=== PATIENT | male | born 1935 | race Caucasian/White ===

== ENCOUNTER 2016-04-01 15:02 | Outpatient (CLI) | payer MEDICARE, MEDICAID ==
--- NOTE | 2016-04-01 17:11 | CT ---
CT HEAD WITHOUT CONTRAST 04/01/16 Multiple axial tomograms are obtained through the head without IV enhancement. HISTORY: Subdural hematoma is given for reason for exam. Comparison is made to a CT dated 03/04/16. FINDINGS: Mild cortical volume loss is again noted. Ventricles remain normal size and position. Mild to modera te chronic ischemic white matter changes again noted. 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 There is no evidence of subdural hematoma. No other evidence of hemorrhage. No acute infarct or mass . IMPRESSION: There are chronic changes as described above. No acute abnormality identified. POS: [facility]
== END 2016-04-01 15:03 | disposition home or self-care (01) ==
LOC: MADCT 15:02
PROVIDERS: ATTEND Neurological Surgery
DX: I62.00 Nontraumatic subdural hemorrhage, unspecified (principal)
CPT/HCPCS: 70450

== ENCOUNTER 2018-01-17 16:03 | Outpatient (CLI) | payer MEDICARE, MEDICAID ==
[2018-01-17 16:24] LABS: Anion Gap 12 mmol/L (10-20); BUN (Urea Nitrogen) 27 mg/dL (8.4-25.7); Calc. Creatinine Clearance 0 mL/min (70-130); Calcium 9.4 mg/dL (7.8-10.44); Carbon Dioxide 31 mmol/L (23-31); Chloride 96 mmol/L (98-107); Estimated GFR-MDRD 57; Glucose 111 mg/dL (83-110); Potassium 4.7 mmol/L (3.5-5.1); Sodium 134 mmol/L (136-145)
== END 2018-01-17 16:04 | disposition home or self-care (01) ==
LOC: MADLAB 16:03
PROVIDERS: ATTEND Specialist
DX: Z51.81 Encounter for therapeutic drug level monitoring (principal); Z79.899 Other long term (current) drug therapy
CPT/HCPCS: 80048

== ENCOUNTER 2019-02-01 15:11 | Outpatient (CLI) | payer MEDICARE, MEDICAID ==
--- NOTE | 2019-02-01 17:33 | RAD ---
CERVICAL SPINE: Total of 6 views. Lateral views obtained with flexion and extension. INDICATION: Cervicalgia. FINDINGS: There are degenerative changes in the cervical spine. C7 and T1 not adequately evaluated on any of th e lateral views due to soft tissue attenuation. There is loss of disc space and degenerative hypertro phic changes. Slight anterolisthesis at C4-5 appears to exacerbate with flexion. IMPRESSION: Moderate degenerative changes of cervical spine. Slight anterolisthesis at C4-5. C7-T1 not adequately evaluated. POS: [facility]
== END 2019-02-01 15:12 | disposition home or self-care (01) ==
LOC: MADLAB 15:11
PROVIDERS: ATTEND Family Medicine
DX: M54.2 Cervicalgia (principal); E11.3493 Type 2 diabetes mellitus with severe nonproliferative diabetic retinopathy without macular edema, bilateral; M47.812 Spondylosis without myelopathy or radiculopathy, cervical region; M43.12 Spondylolisthesis, cervical region
CPT/HCPCS: 72052

== ENCOUNTER 2019-04-29 07:55 | Outpatient (CLI) | payer MEDICARE, MEDICAID ==
--- NOTE | 2019-04-29 11:10 | RAD ---
CHEST TWO VIEWS: HISTORY: Cough. COMPARISON: None. FINDINGS: Postop midline sternotomy and TAVR. Increased linear and interstitial markings bilaterally, nonspecif ic. No significant cardiomegaly. No confluent lobar pneumonia. IMPRESSION: 1. Increased markings bilaterally, nonspecific. 2. Postoperative transcatheter aortic valve replacement and postoperative midline sternotomy change. No prior radiographs. No confluent pneumonia. POS: [facility]
== END 2019-04-29 07:56 | disposition home or self-care (01) ==
LOC: MADRAD 07:55
PROVIDERS: ATTEND Family Medicine
DX: R05 Cough (principal); Z95.2 Presence of prosthetic heart valve; Z98.890 Other specified postprocedural states
CPT/HCPCS: 71046

== ENCOUNTER 2020-01-15 14:16 | Outpatient (CLI) | payer MEDICARE, OTHER ==
[2020-01-15 14:26] LABS: Hemoglobin 12.1 g/dL (14.0-18.0); Mean Corpuscular HGB CONC 31.9 g/dL (32.0-36.0); Mean Corpuscular Volume 93.9 fL (78.0-98.0); Mean Platelet Volume 6.8 fL (7.4-10.4); Platelet Count 138 thou/uL (130-400); RBC Distribution Width 13.5 % (11.5-14.5); Red Blood Cell (RBC) Count 4.04 mill/uL (4.70-6.10); White Blood Cell (WBC) Count 5.4 thou/uL (4.8-10.8)
[2020-01-15 14:30] LABS: Bilirubin Negative (Negative); Blood, Urine Negative (Negative); Clarity Clear (Clear); Glucose, Urine (Dipstick) 500 mg/dL (Negative); Ketone, Urine Negative (Negative); Leukocyte Negative (Negative); Nitrite Negative (Negative); Protein, Urine (Dipstick) Negative (Neg-Trace); Specific Gravity, Urine 1.015 (1.005-1.030)
[2020-01-15 14:31] LABS: Urine Culture Reflex No No
[2020-01-15 14:41] LABS: ALT (SGPT) 15 U/L (8-55); AST (SGOT) 20 U/L (5-34); Albumin 4.1 g/dL (3.4-4.8); Alkaline Phosphatase 76 U/L (40-110); Anion Gap 16 mmol/L (10-20); BUN (Urea Nitrogen) 29 mg/dL (8.4-25.7); Bilirubin, Total 0.7 mg/dL (0.2-1.2); Calc. Creatinine Clearance 0 mL/min (70-130); Carbon Dioxide 29 mmol/L (23-31); Chloride 95 mmol/L (98-107); Estimated GFR-MDRD 50; Globulin 2.9 g/dL (2.4-3.5); Glucose 162 mg/dL (83-110); Magnesium 1.9 mg/dL (1.6-2.6); Potassium 3.9 mmol/L (3.5-5.1); Sodium 136 mmol/L (136-145)
[2020-01-15 14:59] LABS: RBC/HPF 0-3 HPF (0-3); Squamous Epithelial 0-3 HPF (0-3); WBC/HPF 0-3 HPF (0-3)
[2020-01-15 15:00] LABS: Bacteria/HPF None Seen HPF (None Seen)
== END 2020-01-15 14:17 | disposition home or self-care (01) ==
LOC: MADLABBHPM 14:16
PROVIDERS: ATTEND Family Medicine
DX: N18.9 Chronic kidney disease, unspecified (principal); E83.42 Hypomagnesemia; R35.0 Frequency of micturition; D63.1 Anemia in chronic kidney disease
CPT/HCPCS: 80053; 81001; 83735; 85027

== ENCOUNTER 2021-10-09 10:45 | Inpatient (IN) | payer OTHER ==
[2021-10-09] MEDS ORDERED: Albuterol Sulfate 2.5 mg/3 ml Neb NEB PRN (14:38)
[2021-10-09] MEDS ORDERED: cefTRIAXone\\ROCEPHIN 2 GM VIAL IVPB SCH (14:45)
[2021-10-09] MEDS: metroNIDAZOLE 250 MG TAB PO SCH ×2 (15:53→21:49)
[2021-10-09] MEDS ORDERED: Sildenafil Citrate 20 MG TAB PO SCH (16:00)
[2021-10-09] MEDS ORDERED: IPRATROPIUM BROMIDE INH SCH (17:00)
[2021-10-09] MEDS: Acetaminophen 325 MG TAB PO SCH (18:27)
[2021-10-09] MEDS: cefTRIAXone\\ROCEPHIN 2 GM in Sodium Chloride 0.9% 100 ML IVPB SCH (21:45)
[2021-10-09] MEDS: Melatonin 3 MG TAB PO SCH (21:49)
[2021-10-09] MEDS: Atorvastatin Calcium 40 MG TAB PO SCH (21:49)
[2021-10-09] MEDS: Tamsulosin HCl 0.4 MG CAP PO SCH (21:49)
[2021-10-09] MEDS: Clotrimazole 1% Cream 15 GM TUBE TOP SCH (21:49)
[2021-10-09] MEDS: Sildenafil Citrate 20 MG TAB PO SCH (21:49)
[2021-10-09] MEDS: Apixaban 2.5 MG TAB PO SCH (21:50)
[2021-10-09] MEDS: Sotalol HCl 80 MG TAB PO SCH (21:50)
[2021-10-10] MEDS: Acetaminophen 325 MG TAB PO SCH ×3 (08:33→17:15)
[2021-10-10] MEDS: Sotalol HCl 80 MG TAB PO SCH ×2 (08:36→21:35)
[2021-10-10] MEDS: Clopidogrel Bisulfate 75 MG TAB PO SCH (08:36)
[2021-10-10] MEDS: Empagliflozin 10 MG TAB PO SCH (08:36)
[2021-10-10] MEDS: Sildenafil Citrate 20 MG TAB PO SCH ×4 (08:37→21:36)
[2021-10-10] MEDS: Cholecalciferol 1,000 UNITS (25 MCG) TAB PO SCH (08:37)
[2021-10-10] MEDS: Apixaban 2.5 MG TAB PO SCH ×2 (08:37→21:34)
[2021-10-10] MEDS: Saccharomyces boulardii 250 MG CAP PO SCH (08:37)
[2021-10-10] MEDS: Multivit, Therapeutic 1 TAB PO SCH (08:37)
[2021-10-10] MEDS: metroNIDAZOLE 250 MG TAB PO SCH ×4 (08:37→21:35)
[2021-10-10] MEDS: NPH, Human Insulin Isophane 300 UNIT/3 ML VIAL SC SCH (08:40)
[2021-10-10] MEDS: Clotrimazole 1% Cream 15 GM TUBE TOP SCH ×2 (08:40→21:38)
[2021-10-10] MEDS: Atorvastatin Calcium 40 MG TAB PO SCH (21:34)
[2021-10-10] MEDS: Melatonin 3 MG TAB PO SCH (21:34)
[2021-10-10] MEDS: Tamsulosin HCl 0.4 MG CAP PO SCH (21:35)
[2021-10-10] MEDS: cefTRIAXone\\ROCEPHIN 2 GM in Sodium Chloride 0.9% 100 ML IVPB SCH (21:37)
[2021-10-11] MEDS: Acetaminophen 325 MG TAB PO SCH ×3 (08:57→17:22)
[2021-10-11] MEDS: Multivit, Therapeutic 1 TAB PO SCH (08:58)
[2021-10-11] MEDS: Sotalol HCl 80 MG TAB PO SCH ×2 (08:58→21:30)
[2021-10-11] MEDS: Empagliflozin 10 MG TAB PO SCH (08:58)
[2021-10-11] MEDS: Clopidogrel Bisulfate 75 MG TAB PO SCH (08:58)
[2021-10-11] MEDS: Sildenafil Citrate 20 MG TAB PO SCH ×3 (08:59→21:33)
[2021-10-11] MEDS: Cholecalciferol 1,000 UNITS (25 MCG) TAB PO SCH (08:59)
[2021-10-11] MEDS: Apixaban 2.5 MG TAB PO SCH ×2 (08:59→21:32)
[2021-10-11] MEDS: metroNIDAZOLE 250 MG TAB PO SCH ×3 (08:59→21:31)
[2021-10-11] MEDS: Saccharomyces boulardii 250 MG CAP PO SCH (08:59)
[2021-10-11] MEDS: NPH, Human Insulin Isophane 300 UNIT/3 ML VIAL SC SCH (09:00)
[2021-10-11] MEDS: Clotrimazole 1% Cream 15 GM TUBE TOP SCH ×2 (09:01→21:45)
[2021-10-11] MEDS: Atorvastatin Calcium 40 MG TAB PO SCH (21:29)
[2021-10-11] MEDS: Melatonin 3 MG TAB PO SCH (21:31)
[2021-10-11] MEDS: Tamsulosin HCl 0.4 MG CAP PO SCH (21:32)
[2021-10-11] MEDS: cefTRIAXone\\ROCEPHIN 2 GM in Sodium Chloride 0.9% 100 ML IVPB SCH (21:34)
[2021-10-12 07:34] LABS: #Basophils 0.1 thou/uL (0.0-0.2); #Eosinphils 0.2 thou/uL (0.0-0.7); #Lymphocytes 0.8 thou/uL (1.20-3.40); #Monocytes 0.4 thou/uL (0.11-0.59); #Neutrophils 3.7 thou/uL (1.40-6.50); %Basophils 1.3 % (0.0-1.0); %Eosinophils 3.8 % (0.0-10.0); %Lymphocytes 14.8 % (21.0-51.0); %Monocytes 8.4 % (0.0-10.0); %Neutrophils 71.7 % (42.0-75.0); Mean Corpuscular HGB CONC 29.4 g/dL (32.0-36.0); Mean Corpuscular Hemoglobin 28.1 pg (27.0-31.0); Mean Corpuscular Volume 95.4 fL (78.0-98.0); Mean Platelet Volume 8.4 fL (7.4-10.4); Platelet Count 137 thou/uL (130-400); RBC Distribution Width 15.4 % (11.5-14.5); Red Blood Cell (RBC) Count 4.29 mill/uL (4.70-6.10); White Blood Cell (WBC) Count 5.1 thou/uL (4.8-10.8)
[2021-10-12 07:41] LABS: ALT (SGPT) 12 U/L (8-55); AST (SGOT) 23 U/L (5-34); Albumin 2.7 g/dL (3.4-4.8); Alkaline Phosphatase 101 U/L (40-110); Anion Gap 13 mmol/L (10-20); BUN (Urea Nitrogen) 22 mg/dL (8.4-25.7); Bilirubin, Total 0.4 mg/dL (0.2-1.2); Calc. Creatinine Clearance 71 mL/min (70-130); Calcium 8.5 mg/dL (7.8-10.44); Carbon Dioxide 23 mmol/L (23-31); Chloride 104 mmol/L (98-107); Estimated GFR 70; Glucose 119 mg/dL (83-110); Potassium 4.4 mmol/L (3.5-5.1); Sodium 136 mmol/L (136-145)
[2021-10-12 07:47] LABS: Anisocytosis SLIGHT = 6-15 cells (100X) (0-5/hpf); Platelet Morphology Comment Appears Adequate; Poikilocytosis SLIGHT = 6-15 cells (100X) (0-5/hpf)
[2021-10-12] MEDS: Sildenafil Citrate 20 MG TAB PO SCH ×3 (07:58→20:13)
[2021-10-12] MEDS: Empagliflozin 10 MG TAB PO SCH (07:59)
[2021-10-12] MEDS: Sotalol HCl 80 MG TAB PO SCH ×2 (07:59→20:13)
[2021-10-12] MEDS: Apixaban 2.5 MG TAB PO SCH ×2 (08:00→20:14)
[2021-10-12] MEDS: Cholecalciferol 1,000 UNITS (25 MCG) TAB PO SCH (08:00)
[2021-10-12] MEDS: NPH, Human Insulin Isophane 300 UNIT/3 ML VIAL SC SCH (08:00)
[2021-10-12] MEDS: Clotrimazole 1% Cream 15 GM TUBE TOP SCH (08:00)
[2021-10-12 08:10] LABS: Globulin 2.9 g/dL (2.4-3.5); Protein, Total 5.6 g/dL (5.8-8.1)
[2021-10-12] MEDS: Multivit, Therapeutic 1 TAB PO SCH (09:14)
[2021-10-12] MEDS: Clopidogrel Bisulfate 75 MG TAB PO SCH (09:14)
[2021-10-12] MEDS: metroNIDAZOLE 250 MG TAB PO SCH ×3 (09:14→20:13)
[2021-10-12] MEDS: Saccharomyces boulardii 250 MG CAP PO SCH (09:14)
[2021-10-12] MEDS: Acetaminophen 325 MG TAB PO SCH ×3 (09:14→17:15)
[2021-10-12] MEDS: Melatonin 3 MG TAB PO SCH (20:13)
[2021-10-12] MEDS: Atorvastatin Calcium 40 MG TAB PO SCH (20:13)
[2021-10-12] MEDS: cefTRIAXone\\ROCEPHIN 2 GM in Sodium Chloride 0.9% 100 ML IVPB SCH (20:14)
[2021-10-12] MEDS: Tamsulosin HCl 0.4 MG CAP PO SCH (20:14)
[2021-10-12] MEDS: Nystatin/Triamcinolone Cream 15 GM TUBE TOP SCH (20:15)
[2021-10-13] MEDS: NPH, Human Insulin Isophane 300 UNIT/3 ML VIAL SC SCH (08:03)
[2021-10-13] MEDS: Acetaminophen 325 MG TAB PO SCH ×3 (08:04→16:24)
[2021-10-13] MEDS: Empagliflozin 10 MG TAB PO SCH (08:05)
[2021-10-13] MEDS: Clopidogrel Bisulfate 75 MG TAB PO SCH (08:05)
[2021-10-13] MEDS: Sotalol HCl 80 MG TAB PO SCH ×2 (08:05→21:59)
[2021-10-13] MEDS: Apixaban 2.5 MG TAB PO SCH ×2 (08:06→21:58)
[2021-10-13] MEDS: Sildenafil Citrate 20 MG TAB PO SCH ×3 (08:06→21:58)
[2021-10-13] MEDS: Saccharomyces boulardii 250 MG CAP PO SCH (08:49)
[2021-10-13] MEDS: Multivit, Therapeutic 1 TAB PO SCH (08:49)
[2021-10-13] MEDS: Cholecalciferol 1,000 UNITS (25 MCG) TAB PO SCH (08:50)
[2021-10-13] MEDS: metroNIDAZOLE 250 MG TAB PO SCH ×3 (08:50→21:58)
[2021-10-13] MEDS: Nystatin/Triamcinolone Cream 15 GM TUBE TOP SCH ×2 (09:00→22:03)
[2021-10-13] MEDS: cefTRIAXone\\ROCEPHIN 2 GM in Sodium Chloride 0.9% 100 ML IVPB SCH (21:57)
[2021-10-13] MEDS: Atorvastatin Calcium 40 MG TAB PO SCH (21:58)
[2021-10-13] MEDS: Melatonin 3 MG TAB PO SCH (21:58)
[2021-10-13] MEDS: Tamsulosin HCl 0.4 MG CAP PO SCH (21:58)
[2021-10-13] MEDS: Acetaminophen 500 MG TAB PO PRN ×2 (21:59→22:07)
[2021-10-14] MEDS: NPH, Human Insulin Isophane 300 UNIT/3 ML VIAL SC SCH (08:44)
[2021-10-14] MEDS: Multivit, Therapeutic 1 TAB PO SCH (08:45)
[2021-10-14] MEDS: Empagliflozin 10 MG TAB PO SCH (08:45)
[2021-10-14] MEDS: Acetaminophen 325 MG TAB PO SCH ×3 (08:45→17:07)
[2021-10-14] MEDS: Clopidogrel Bisulfate 75 MG TAB PO SCH (08:45)
[2021-10-14] MEDS: Cholecalciferol 1,000 UNITS (25 MCG) TAB PO SCH (08:45)
[2021-10-14] MEDS: metroNIDAZOLE 250 MG TAB PO SCH ×3 (08:45→21:28)
[2021-10-14] MEDS: Sotalol HCl 80 MG TAB PO SCH ×2 (08:46→21:26)
[2021-10-14] MEDS: Apixaban 2.5 MG TAB PO SCH ×2 (08:46→21:26)
[2021-10-14] MEDS: Sildenafil Citrate 20 MG TAB PO SCH ×3 (08:47→21:28)
[2021-10-14] MEDS: Saccharomyces boulardii 250 MG CAP PO SCH (08:47)
[2021-10-14] MEDS: Nystatin/Triamcinolone Cream 15 GM TUBE TOP SCH ×2 (08:47→21:28)
[2021-10-14] MEDS: cefTRIAXone\\ROCEPHIN 2 GM in Sodium Chloride 0.9% 100 ML IVPB SCH (21:25)
[2021-10-14] MEDS: Tamsulosin HCl 0.4 MG CAP PO SCH (21:26)
[2021-10-14] MEDS: Atorvastatin Calcium 40 MG TAB PO SCH (21:28)
[2021-10-14] MEDS: Melatonin 3 MG TAB PO SCH (21:28)
[2021-10-15] MEDS: metroNIDAZOLE 250 MG TAB PO SCH ×4 (09:20→22:11)
[2021-10-15] MEDS: Sildenafil Citrate 20 MG TAB PO SCH ×4 (09:20→22:07)
[2021-10-15] MEDS: Apixaban 2.5 MG TAB PO SCH ×2 (09:20→22:11)
[2021-10-15] MEDS: Saccharomyces boulardii 250 MG CAP PO SCH (09:20)
[2021-10-15] MEDS: Acetaminophen 325 MG TAB PO SCH ×3 (09:20→17:19)
[2021-10-15] MEDS: Clopidogrel Bisulfate 75 MG TAB PO SCH (09:21)
[2021-10-15] MEDS: Sotalol HCl 80 MG TAB PO SCH ×2 (09:21→22:10)
[2021-10-15] MEDS: Cholecalciferol 1,000 UNITS (25 MCG) TAB PO SCH (09:21)
[2021-10-15] MEDS: Multivit, Therapeutic 1 TAB PO SCH (09:21)
[2021-10-15] MEDS: Empagliflozin 10 MG TAB PO SCH (09:21)
[2021-10-15] MEDS: NPH, Human Insulin Isophane 300 UNIT/3 ML VIAL SC SCH (09:43)
[2021-10-15] MEDS: Nystatin/Triamcinolone Cream 15 GM TUBE TOP SCH ×2 (09:43→22:13)
[2021-10-15] MEDS: Atorvastatin Calcium 40 MG TAB PO SCH (22:11)
[2021-10-15] MEDS: cefTRIAXone\\ROCEPHIN 2 GM in Sodium Chloride 0.9% 100 ML IVPB SCH (22:12)
[2021-10-15] MEDS: Melatonin 3 MG TAB PO SCH (22:12)
[2021-10-15] MEDS: Tamsulosin HCl 0.4 MG CAP PO SCH (22:13)
[2021-10-16] MEDS ORDERED: IPRATROPIUM BROMIDE 0.06% FS PRN (06:25)
[2021-10-16] MEDS: Apixaban 2.5 MG TAB PO SCH ×2 (08:33→21:12)
[2021-10-16] MEDS: Multivit, Therapeutic 1 TAB PO SCH (08:33)
[2021-10-16] MEDS: Acetaminophen 325 MG TAB PO SCH ×3 (08:33→18:11)
[2021-10-16] MEDS: Sildenafil Citrate 20 MG TAB PO SCH ×3 (08:33→21:04)
[2021-10-16] MEDS: Empagliflozin 10 MG TAB PO SCH (08:33)
[2021-10-16] MEDS: Saccharomyces boulardii 250 MG CAP PO SCH (08:33)
[2021-10-16] MEDS: metroNIDAZOLE 250 MG TAB PO SCH ×3 (08:34→21:01)
[2021-10-16] MEDS: Clopidogrel Bisulfate 75 MG TAB PO SCH (08:34)
[2021-10-16] MEDS: Cholecalciferol 1,000 UNITS (25 MCG) TAB PO SCH (08:35)
[2021-10-16] MEDS: Sotalol HCl 80 MG TAB PO SCH ×2 (08:35→21:13)
[2021-10-16] MEDS: NPH, Human Insulin Isophane 300 UNIT/3 ML VIAL SC SCH (08:36)
[2021-10-16] MEDS: Nystatin/Triamcinolone Cream 15 GM TUBE TOP SCH ×2 (08:36→21:17)
[2021-10-16] MEDS: Melatonin 3 MG TAB PO SCH (21:05)
[2021-10-16] MEDS: Atorvastatin Calcium 40 MG TAB PO SCH (21:12)
[2021-10-16] MEDS: Tamsulosin HCl 0.4 MG CAP PO SCH (21:13)
[2021-10-16] MEDS: cefTRIAXone\\ROCEPHIN 2 GM in Sodium Chloride 0.9% 100 ML IVPB SCH (21:14)
[2021-10-17] MEDS: Saccharomyces boulardii 250 MG CAP PO SCH (08:38)
[2021-10-17] MEDS: Acetaminophen 325 MG TAB PO SCH ×3 (08:38→17:41)
[2021-10-17] MEDS: Cholecalciferol 1,000 UNITS (25 MCG) TAB PO SCH (08:39)
[2021-10-17] MEDS: metroNIDAZOLE 250 MG TAB PO SCH ×3 (08:39→21:31)
[2021-10-17] MEDS: Multivit, Therapeutic 1 TAB PO SCH (08:39)
[2021-10-17] MEDS: Sildenafil Citrate 20 MG TAB PO SCH ×3 (08:39→21:31)
[2021-10-17] MEDS: Apixaban 2.5 MG TAB PO SCH ×2 (08:40→21:31)
[2021-10-17] MEDS: Nystatin/Triamcinolone Cream 15 GM TUBE TOP SCH ×2 (08:40→21:31)
[2021-10-17] MEDS: Sotalol HCl 80 MG TAB PO SCH ×2 (08:40→21:32)
[2021-10-17] MEDS: Clopidogrel Bisulfate 75 MG TAB PO SCH (08:40)
[2021-10-17] MEDS: Empagliflozin 10 MG TAB PO SCH (08:40)
[2021-10-17] MEDS: NPH, Human Insulin Isophane 300 UNIT/3 ML VIAL SC SCH (08:41)
[2021-10-17] MEDS: cefTRIAXone\\ROCEPHIN 2 GM in Sodium Chloride 0.9% 100 ML IVPB SCH (21:30)
[2021-10-17] MEDS: Melatonin 3 MG TAB PO SCH (21:30)
[2021-10-17] MEDS: Atorvastatin Calcium 40 MG TAB PO SCH (21:31)
[2021-10-17] MEDS: Tamsulosin HCl 0.4 MG CAP PO SCH (21:31)
[2021-10-18] MEDS: NPH, Human Insulin Isophane 300 UNIT/3 ML VIAL SC SCH (08:46)
[2021-10-18] MEDS: Multivit, Therapeutic 1 TAB PO SCH (08:47)
[2021-10-18] MEDS: Sildenafil Citrate 20 MG TAB PO SCH ×3 (08:47→20:36)
[2021-10-18] MEDS: Saccharomyces boulardii 250 MG CAP PO SCH (08:47)
[2021-10-18] MEDS: Apixaban 2.5 MG TAB PO SCH ×2 (08:47→20:36)
[2021-10-18] MEDS: Cholecalciferol 1,000 UNITS (25 MCG) TAB PO SCH (08:47)
[2021-10-18] MEDS: Acetaminophen 325 MG TAB PO SCH ×3 (08:47→17:00)
[2021-10-18] MEDS: Empagliflozin 10 MG TAB PO SCH (08:48)
[2021-10-18] MEDS: metroNIDAZOLE 250 MG TAB PO SCH ×3 (08:48→20:36)
[2021-10-18] MEDS: Clopidogrel Bisulfate 75 MG TAB PO SCH (08:48)
[2021-10-18] MEDS: Sotalol HCl 80 MG TAB PO SCH ×2 (08:49→20:37)
[2021-10-18] MEDS: Nystatin/Triamcinolone Cream 15 GM TUBE TOP SCH ×2 (08:53→20:44)
[2021-10-18] MEDS: Atorvastatin Calcium 40 MG TAB PO SCH (20:36)
[2021-10-18] MEDS: Tamsulosin HCl 0.4 MG CAP PO SCH (20:36)
[2021-10-18] MEDS: Melatonin 3 MG TAB PO SCH (20:36)
[2021-10-18] MEDS: cefTRIAXone\\ROCEPHIN 2 GM in Sodium Chloride 0.9% 100 ML IVPB SCH (20:36)
[2021-10-19 05:06] LABS: Hemoglobin 12.7 g/dL (14.0-18.0); Platelet Count 166 thou/uL (130-400)
[2021-10-19 07:08] LABS: #Basophils 0.1 thou/uL (0.0-0.2); #Eosinphils 0.2 thou/uL (0.0-0.7); #Lymphocytes 0.9 thou/uL (1.20-3.40); #Monocytes 0.6 thou/uL (0.11-0.59); #Neutrophils 4.8 thou/uL (1.40-6.50); %Basophils 1.1 % (0.0-1.0); %Eosinophils 3.2 % (0.0-10.0); %Lymphocytes 13.3 % (21.0-51.0); %Monocytes 8.5 % (0.0-10.0); %Neutrophils 73.9 % (42.0-75.0); Hemoglobin 12.5 g/dL (14.0-18.0); Mean Corpuscular HGB CONC 29.8 g/dL (32.0-36.0); Mean Corpuscular Hemoglobin 27.9 pg (27.0-31.0); Mean Corpuscular Volume 93.5 fL (78.0-98.0); Mean Platelet Volume 8.5 fL (7.4-10.4); Platelet Count 175 thou/uL (130-400); Red Blood Cell (RBC) Count 4.49 mill/uL (4.70-6.10); White Blood Cell (WBC) Count 6.5 thou/uL (4.8-10.8)
[2021-10-19 07:40] LABS: Anion Gap 14 mmol/L (10-20); BUN (Urea Nitrogen) 32 mg/dL (8.4-25.7); Calc. Creatinine Clearance 82 mL/min (70-130); Calcium 8.7 mg/dL (7.8-10.44); Carbon Dioxide 23 mmol/L (23-31); Chloride 104 mmol/L (98-107); Estimated GFR 82; Glucose 130 mg/dL (83-110); Potassium 4.9 mmol/L (3.5-5.1); Sodium 136 mmol/L (136-145)
[2021-10-19] MEDS: Acetaminophen 325 MG TAB PO SCH ×2 (08:13→12:16)
[2021-10-19] MEDS: Cholecalciferol 1,000 UNITS (25 MCG) TAB PO SCH (10:02)
[2021-10-19] MEDS: NPH, Human Insulin Isophane 300 UNIT/3 ML VIAL SC SCH (10:02)
[2021-10-19] MEDS: Clopidogrel Bisulfate 75 MG TAB PO SCH (10:02)
[2021-10-19] MEDS: Multivit, Therapeutic 1 TAB PO SCH (10:02)
[2021-10-19] MEDS: metroNIDAZOLE 250 MG TAB PO SCH ×3 (10:02→21:46)
[2021-10-19] MEDS: Apixaban 2.5 MG TAB PO SCH ×2 (10:02→21:46)
[2021-10-19] MEDS: Empagliflozin 10 MG TAB PO SCH (10:02)
[2021-10-19] MEDS: Sotalol HCl 80 MG TAB PO SCH ×2 (10:03→21:47)
[2021-10-19] MEDS: Sildenafil Citrate 20 MG TAB PO SCH ×3 (10:03→21:46)
[2021-10-19] MEDS: Saccharomyces boulardii 250 MG CAP PO SCH (10:03)
[2021-10-19] MEDS: Nystatin/Triamcinolone Cream 15 GM TUBE TOP SCH ×2 (10:03→21:50)
[2021-10-19] MEDS: Acetaminophen ER (8hr) 650 MG TAB PO SCH ×2 (14:35→21:46)
[2021-10-19] MEDS: Diclofenac 1% 100 GM GEL TP PRN (14:36)
[2021-10-19] MEDS: cefTRIAXone\\ROCEPHIN 2 GM in Sodium Chloride 0.9% 100 ML IVPB SCH (21:45)
[2021-10-19] MEDS: Melatonin 3 MG TAB PO SCH (21:46)
[2021-10-19] MEDS: Atorvastatin Calcium 40 MG TAB PO SCH (21:46)
[2021-10-19] MEDS: Tamsulosin HCl 0.4 MG CAP PO SCH (21:46)
[2021-10-20] MEDS: Acetaminophen ER (8hr) 650 MG TAB PO SCH ×3 (05:47→21:47)
[2021-10-20] MEDS: Saccharomyces boulardii 250 MG CAP PO SCH (10:15)
[2021-10-20] MEDS: Apixaban 2.5 MG TAB PO SCH ×2 (10:15→21:46)
[2021-10-20] MEDS: Cholecalciferol 1,000 UNITS (25 MCG) TAB PO SCH (10:15)
[2021-10-20] MEDS: Sildenafil Citrate 20 MG TAB PO SCH ×4 (10:16→21:49)
[2021-10-20] MEDS: Clopidogrel Bisulfate 75 MG TAB PO SCH (10:16)
[2021-10-20] MEDS: Sotalol HCl 80 MG TAB PO SCH ×2 (10:16→21:50)
[2021-10-20] MEDS: Multivit, Therapeutic 1 TAB PO SCH (10:16)
[2021-10-20] MEDS: metroNIDAZOLE 250 MG TAB PO SCH ×4 (10:16→21:48)
[2021-10-20] MEDS: NPH, Human Insulin Isophane 300 UNIT/3 ML VIAL SC SCH (10:18)
[2021-10-20] MEDS: Empagliflozin 10 MG TAB PO SCH (10:18)
[2021-10-20] MEDS: Nystatin/Triamcinolone Cream 15 GM TUBE TOP SCH ×2 (10:20→21:50)
[2021-10-20] MEDS: Acetaminophen 500 MG TAB PO PRN (17:26)
[2021-10-20] MEDS ORDERED: Tamsulosin HCl 0.4 MG CAP ONE (20:25)
[2021-10-20] MEDS ORDERED: Sotalol HCl 80 MG TAB ONE (20:25)
[2021-10-20] MEDS ORDERED: Sildenafil Citrate 20 MG TAB ONE (20:26)
[2021-10-20] MEDS ORDERED: metroNIDAZOLE 250 MG TAB ONE (20:26)
[2021-10-20] MEDS ORDERED: cefTRIAXone\\ROCEPHIN 2 GM VIAL ONE (20:26)
[2021-10-20] MEDS ORDERED: Acetaminophen ER (8hr) 650 MG TAB PO ONE (20:26)
[2021-10-20] MEDS ORDERED: Atorvastatin Calcium 40 MG TAB ONE (20:26)
[2021-10-20] MEDS ORDERED: Melatonin 3 MG TAB ONE (20:26)
[2021-10-20] MEDS ORDERED: Apixaban 2.5 MG TAB ONE (20:26)
[2021-10-20] MEDS: Melatonin 3 MG TAB PO SCH (21:47)
[2021-10-20] MEDS: cefTRIAXone\\ROCEPHIN 2 GM in Sodium Chloride 0.9% 100 ML IVPB SCH (21:47)
[2021-10-20] MEDS: Atorvastatin Calcium 40 MG TAB PO SCH (21:47)
[2021-10-20] MEDS: Tamsulosin HCl 0.4 MG CAP PO SCH (21:49)
[2021-10-21] MEDS: Acetaminophen ER (8hr) 650 MG TAB PO SCH ×3 (05:39→22:14)
[2021-10-21] MEDS: metroNIDAZOLE 250 MG TAB PO SCH ×3 (08:59→22:13)
[2021-10-21] MEDS: Sildenafil Citrate 20 MG TAB PO SCH ×3 (09:00→22:13)
[2021-10-21] MEDS: Saccharomyces boulardii 250 MG CAP PO SCH (09:00)
[2021-10-21] MEDS: Multivit, Therapeutic 1 TAB PO SCH (09:00)
[2021-10-21] MEDS: Sotalol HCl 80 MG TAB PO SCH (09:00)
[2021-10-21] MEDS: Cholecalciferol 1,000 UNITS (25 MCG) TAB PO SCH (09:02)
[2021-10-21] MEDS: Apixaban 2.5 MG TAB PO SCH ×2 (09:02→22:13)
[2021-10-21] MEDS: Empagliflozin 10 MG TAB PO SCH (09:02)
[2021-10-21] MEDS: Clopidogrel Bisulfate 75 MG TAB PO SCH (09:02)
[2021-10-21] MEDS: NPH, Human Insulin Isophane 300 UNIT/3 ML VIAL SC SCH (09:04)
[2021-10-21] MEDS: Nystatin/Triamcinolone Cream 15 GM TUBE TOP SCH ×2 (09:07→22:13)
[2021-10-21] MEDS: cefTRIAXone\\ROCEPHIN 2 GM in Sodium Chloride 0.9% 100 ML IVPB SCH (22:12)
[2021-10-21] MEDS: Melatonin 3 MG TAB PO SCH (22:13)
[2021-10-21] MEDS: Atorvastatin Calcium 40 MG TAB PO SCH (22:13)
[2021-10-21] MEDS: Tamsulosin HCl 0.4 MG CAP PO SCH (22:14)
[2021-10-22] MEDS: Acetaminophen ER (8hr) 650 MG TAB PO SCH ×3 (06:01→21:45)
[2021-10-22] MEDS: Saccharomyces boulardii 250 MG CAP PO SCH (09:13)
[2021-10-22] MEDS: Clopidogrel Bisulfate 75 MG TAB PO SCH (09:13)
[2021-10-22] MEDS: metroNIDAZOLE 250 MG TAB PO SCH ×3 (09:13→21:46)
[2021-10-22] MEDS: Empagliflozin 10 MG TAB PO SCH (09:13)
[2021-10-22] MEDS: Nystatin/Triamcinolone Cream 15 GM TUBE TOP SCH ×2 (09:14→21:48)
[2021-10-22] MEDS: Multivit, Therapeutic 1 TAB PO SCH (09:14)
[2021-10-22] MEDS: Sildenafil Citrate 20 MG TAB PO SCH ×3 (09:14→21:46)
[2021-10-22] MEDS: Apixaban 2.5 MG TAB PO SCH ×2 (09:14→21:46)
[2021-10-22] MEDS: NPH, Human Insulin Isophane 300 UNIT/3 ML VIAL SC SCH (09:14)
[2021-10-22] MEDS: Cholecalciferol 1,000 UNITS (25 MCG) TAB PO SCH (09:14)
[2021-10-22] MEDS ORDERED: Amiodarone 200 MG TAB PO SCH (13:45)
[2021-10-22] MEDS: Amiodarone 200 MG TAB PO SCH (15:45)
[2021-10-22] MEDS: cefTRIAXone\\ROCEPHIN 2 GM in Sodium Chloride 0.9% 100 ML IVPB SCH (21:44)
[2021-10-22] MEDS: Tamsulosin HCl 0.4 MG CAP PO SCH (21:45)
[2021-10-22] MEDS: Atorvastatin Calcium 40 MG TAB PO SCH (21:46)
[2021-10-22] MEDS: Melatonin 3 MG TAB PO SCH (21:46)
[2021-10-23] MEDS: Acetaminophen ER (8hr) 650 MG TAB PO SCH ×3 (06:03→22:25)
[2021-10-23] MEDS: NPH, Human Insulin Isophane 300 UNIT/3 ML VIAL SC SCH (08:27)
[2021-10-23] MEDS: Clopidogrel Bisulfate 75 MG TAB PO SCH (08:28)
[2021-10-23] MEDS: Saccharomyces boulardii 250 MG CAP PO SCH (08:28)
[2021-10-23] MEDS: metroNIDAZOLE 250 MG TAB PO SCH ×3 (08:28→22:25)
[2021-10-23] MEDS: Sildenafil Citrate 20 MG TAB PO SCH ×3 (08:28→22:26)
[2021-10-23] MEDS: Apixaban 2.5 MG TAB PO SCH ×2 (08:28→22:26)
[2021-10-23] MEDS: Empagliflozin 10 MG TAB PO SCH (08:28)
[2021-10-23] MEDS: Cholecalciferol 1,000 UNITS (25 MCG) TAB PO SCH (08:28)
[2021-10-23] MEDS: Multivit, Therapeutic 1 TAB PO SCH (08:28)
[2021-10-23] MEDS: Nystatin/Triamcinolone Cream 15 GM TUBE TOP SCH ×2 (08:29→22:32)
[2021-10-23] MEDS ORDERED: Amiodarone 200 MG TAB PO SCH (09:00)
[2021-10-23] MEDS: Amiodarone 200 MG TAB PO SCH (16:51)
[2021-10-23] MEDS: Melatonin 3 MG TAB PO SCH (22:25)
[2021-10-23] MEDS: Atorvastatin Calcium 40 MG TAB PO SCH (22:26)
[2021-10-23] MEDS: Tamsulosin HCl 0.4 MG CAP PO SCH (22:26)
[2021-10-23] MEDS: cefTRIAXone\\ROCEPHIN 2 GM in Sodium Chloride 0.9% 100 ML IVPB SCH (22:26)
[2021-10-23] MEDS: Nystatin Powder 15 GM BOT TOP SCH (22:32)
[2021-10-24] MEDS: Acetaminophen ER (8hr) 650 MG TAB PO SCH ×3 (06:00→21:59)
[2021-10-24] MEDS: metroNIDAZOLE 250 MG TAB PO SCH ×3 (08:35→22:01)
[2021-10-24] MEDS: Cholecalciferol 1,000 UNITS (25 MCG) TAB PO SCH (08:35)
[2021-10-24] MEDS: Apixaban 2.5 MG TAB PO SCH ×2 (08:35→22:02)
[2021-10-24] MEDS: Sildenafil Citrate 20 MG TAB PO SCH ×3 (08:36→22:01)
[2021-10-24] MEDS: Nystatin/Triamcinolone Cream 15 GM TUBE TOP SCH ×2 (08:36→22:05)
[2021-10-24] MEDS: Clopidogrel Bisulfate 75 MG TAB PO SCH (08:36)
[2021-10-24] MEDS: Empagliflozin 10 MG TAB PO SCH (08:36)
[2021-10-24] MEDS: Saccharomyces boulardii 250 MG CAP PO SCH (08:36)
[2021-10-24] MEDS: Multivit, Therapeutic 1 TAB PO SCH (08:36)
[2021-10-24] MEDS: Nystatin Powder 15 GM BOT TOP SCH ×3 (08:37→22:05)
[2021-10-24] MEDS: NPH, Human Insulin Isophane 300 UNIT/3 ML VIAL SC SCH (08:38)
[2021-10-24] MEDS: Acetaminophen 500 MG TAB PO PRN (15:21)
[2021-10-24] MEDS: Amiodarone 200 MG TAB PO SCH (17:11)
[2021-10-24] MEDS: cefTRIAXone\\ROCEPHIN 2 GM in Sodium Chloride 0.9% 100 ML IVPB SCH (21:59)
[2021-10-24] MEDS: Melatonin 3 MG TAB PO SCH (22:01)
[2021-10-24] MEDS: Atorvastatin Calcium 40 MG TAB PO SCH (22:02)
[2021-10-24] MEDS: Tamsulosin HCl 0.4 MG CAP PO SCH (22:02)
[2021-10-25] MEDS: Acetaminophen ER (8hr) 650 MG TAB PO SCH ×4 (05:52→22:33)
[2021-10-25] MEDS: Saccharomyces boulardii 250 MG CAP PO SCH (09:50)
[2021-10-25] MEDS: Empagliflozin 10 MG TAB PO SCH (09:50)
[2021-10-25] MEDS: Sildenafil Citrate 20 MG TAB PO SCH ×4 (09:50→21:43)
[2021-10-25] MEDS: Multivit, Therapeutic 1 TAB PO SCH (09:50)
[2021-10-25] MEDS: Apixaban 2.5 MG TAB PO SCH ×2 (09:50→21:41)
[2021-10-25] MEDS: metroNIDAZOLE 250 MG TAB PO SCH ×4 (09:50→21:43)
[2021-10-25] MEDS: Cholecalciferol 1,000 UNITS (25 MCG) TAB PO SCH (09:50)
[2021-10-25] MEDS: Clopidogrel Bisulfate 75 MG TAB PO SCH (09:52)
[2021-10-25] MEDS: Nystatin Powder 15 GM BOT TOP SCH ×3 (09:53→22:33)
[2021-10-25] MEDS: Nystatin/Triamcinolone Cream 15 GM TUBE TOP SCH ×2 (09:53→22:33)
[2021-10-25] MEDS: NPH, Human Insulin Isophane 300 UNIT/3 ML VIAL SC SCH (09:54)
[2021-10-25] MEDS: Amiodarone 200 MG TAB PO SCH (17:10)
[2021-10-25] MEDS: cefTRIAXone\\ROCEPHIN 2 GM in Sodium Chloride 0.9% 100 ML IVPB SCH (20:20)
[2021-10-25] MEDS: Tamsulosin HCl 0.4 MG CAP PO SCH (21:42)
[2021-10-25] MEDS: Atorvastatin Calcium 40 MG TAB PO SCH (21:42)
[2021-10-25] MEDS: Melatonin 3 MG TAB PO SCH (21:43)
[2021-10-25] MEDS: Acetaminophen 500 MG TAB PO PRN (21:44)
[2021-10-26] MEDS: Acetaminophen 500 MG TAB PO PRN (05:24)
[2021-10-26] MEDS: Acetaminophen ER (8hr) 650 MG TAB PO SCH ×3 (07:17→22:41)
[2021-10-26 07:42] LABS: #Basophils 0.1 thou/uL (0.0-0.2); #Eosinphils 0.2 thou/uL (0.0-0.7); #Lymphocytes 0.8 thou/uL (1.20-3.40); #Monocytes 0.4 thou/uL (0.11-0.59); #Neutrophils 4.4 thou/uL (1.40-6.50); %Basophils 1.6 % (0.0-1.0); %Lymphocytes 13.4 % (21.0-51.0); %Monocytes 6.5 % (0.0-10.0); %Neutrophils 75.4 % (42.0-75.0); Hemoglobin 12.4 g/dL (14.0-18.0); Mean Corpuscular HGB CONC 29.7 g/dL (32.0-36.0); Mean Corpuscular Hemoglobin 27.7 pg (27.0-31.0); Mean Corpuscular Volume 93.1 fL (78.0-98.0); Mean Platelet Volume 8.3 fL (7.4-10.4); Platelet Count 148 thou/uL (130-400); Red Blood Cell (RBC) Count 4.47 mill/uL (4.70-6.10); White Blood Cell (WBC) Count 5.8 thou/uL (4.8-10.8)
[2021-10-26 07:55] LABS: Anion Gap 11 mmol/L (10-20); BUN (Urea Nitrogen) 31 mg/dL (8.4-25.7); Calc. Creatinine Clearance 77 mL/min (70-130); Calcium 8.7 mg/dL (7.8-10.44); Carbon Dioxide 27 mmol/L (23-31); Chloride 104 mmol/L (98-107); Estimated GFR 74; Glucose 139 mg/dL (83-110); Potassium 4.7 mmol/L (3.5-5.1); Sodium 137 mmol/L (136-145)
[2021-10-26] MEDS: Empagliflozin 10 MG TAB PO SCH (08:48)
[2021-10-26] MEDS: Cholecalciferol 1,000 UNITS (25 MCG) TAB PO SCH (08:48)
[2021-10-26] MEDS: Sildenafil Citrate 20 MG TAB PO SCH ×3 (08:48→20:35)
[2021-10-26] MEDS: metroNIDAZOLE 250 MG TAB PO SCH ×3 (08:48→20:35)
[2021-10-26] MEDS: Clopidogrel Bisulfate 75 MG TAB PO SCH (08:48)
[2021-10-26] MEDS: Saccharomyces boulardii 250 MG CAP PO SCH (08:48)
[2021-10-26] MEDS: Multivit, Therapeutic 1 TAB PO SCH (08:48)
[2021-10-26] MEDS: NPH, Human Insulin Isophane 300 UNIT/3 ML VIAL SC SCH (08:48)
[2021-10-26] MEDS: Apixaban 2.5 MG TAB PO SCH ×2 (08:48→20:35)
[2021-10-26] MEDS: Nystatin Powder 15 GM BOT TOP SCH ×3 (08:49→20:35)
[2021-10-26] MEDS: Nystatin/Triamcinolone Cream 15 GM TUBE TOP SCH ×2 (08:49→20:36)
[2021-10-26 16:06] VITALS: BMI 27.8
[2021-10-26] MEDS: Amiodarone 200 MG TAB PO SCH (16:51)
[2021-10-26] MEDS: cefTRIAXone\\ROCEPHIN 2 GM in Sodium Chloride 0.9% 100 ML IVPB SCH (20:34)
[2021-10-26] MEDS: Tamsulosin HCl 0.4 MG CAP PO SCH (20:35)
[2021-10-26] MEDS: Atorvastatin Calcium 40 MG TAB PO SCH (20:35)
[2021-10-26] MEDS: Melatonin 3 MG TAB PO SCH (20:35)
[2021-10-27] MEDS: Acetaminophen ER (8hr) 650 MG TAB PO SCH ×3 (05:41→23:16)
[2021-10-27] MEDS: Empagliflozin 10 MG TAB PO SCH (08:42)
[2021-10-27] MEDS: Cholecalciferol 1,000 UNITS (25 MCG) TAB PO SCH (08:42)
[2021-10-27] MEDS: Saccharomyces boulardii 250 MG CAP PO SCH (08:42)
[2021-10-27] MEDS: metroNIDAZOLE 250 MG TAB PO SCH ×3 (08:42→20:34)
[2021-10-27] MEDS: Clopidogrel Bisulfate 75 MG TAB PO SCH (08:42)
[2021-10-27] MEDS: Sildenafil Citrate 20 MG TAB PO SCH ×3 (08:43→20:34)
[2021-10-27] MEDS: Multivit, Therapeutic 1 TAB PO SCH (08:43)
[2021-10-27] MEDS: NPH, Human Insulin Isophane 300 UNIT/3 ML VIAL SC SCH (08:43)
[2021-10-27] MEDS: Apixaban 2.5 MG TAB PO SCH ×2 (08:43→20:34)
[2021-10-27] MEDS: Nystatin Powder 15 GM BOT TOP SCH ×3 (09:05→20:35)
[2021-10-27] MEDS: Nystatin/Triamcinolone Cream 15 GM TUBE TOP SCH ×2 (09:05→20:35)
[2021-10-27] MEDS: Amiodarone 200 MG TAB PO SCH (16:40)
[2021-10-27] MEDS: cefTRIAXone\\ROCEPHIN 2 GM in Sodium Chloride 0.9% 100 ML IVPB SCH (20:32)
[2021-10-27] MEDS: Atorvastatin Calcium 40 MG TAB PO SCH (20:34)
[2021-10-27] MEDS: Melatonin 3 MG TAB PO SCH (20:34)
[2021-10-27] MEDS: Tamsulosin HCl 0.4 MG CAP PO SCH (20:34)
[2021-10-28] MEDS: Acetaminophen ER (8hr) 650 MG TAB PO SCH ×3 (05:44→20:32)
[2021-10-28] MEDS: Clopidogrel Bisulfate 75 MG TAB PO SCH (08:58)
[2021-10-28] MEDS: Apixaban 2.5 MG TAB PO SCH ×2 (08:59→20:30)
[2021-10-28] MEDS: Multivit, Therapeutic 1 TAB PO SCH (08:59)
[2021-10-28] MEDS: Empagliflozin 10 MG TAB PO SCH (08:59)
[2021-10-28] MEDS: metroNIDAZOLE 250 MG TAB PO SCH ×3 (08:59→20:29)
[2021-10-28] MEDS: Saccharomyces boulardii 250 MG CAP PO SCH (08:59)
[2021-10-28] MEDS: Sildenafil Citrate 20 MG TAB PO SCH ×3 (08:59→20:30)
[2021-10-28] MEDS: NPH, Human Insulin Isophane 300 UNIT/3 ML VIAL SC SCH (08:59)
[2021-10-28] MEDS: Cholecalciferol 1,000 UNITS (25 MCG) TAB PO SCH (08:59)
[2021-10-28] MEDS: Nystatin/Triamcinolone Cream 15 GM TUBE TOP SCH ×2 (09:00→20:31)
[2021-10-28] MEDS: Nystatin Powder 15 GM BOT TOP SCH ×3 (09:00→20:31)
[2021-10-28] MEDS: Diclofenac 1% 100 GM GEL TP PRN (11:27)
[2021-10-28] MEDS: Amiodarone 200 MG TAB PO SCH (17:09)
[2021-10-28] MEDS: Tamsulosin HCl 0.4 MG CAP PO SCH (20:30)
[2021-10-28] MEDS: cefTRIAXone\\ROCEPHIN 2 GM in Sodium Chloride 0.9% 100 ML IVPB SCH (20:30)
[2021-10-28] MEDS: Melatonin 3 MG TAB PO SCH (20:30)
[2021-10-28] MEDS: Atorvastatin Calcium 40 MG TAB PO SCH (20:30)
[2021-10-29] MEDS: Acetaminophen ER (8hr) 650 MG TAB PO SCH ×3 (05:20→21:18)
[2021-10-29] MEDS: Multivit, Therapeutic 1 TAB PO SCH (08:11)
[2021-10-29] MEDS: Cholecalciferol 1,000 UNITS (25 MCG) TAB PO SCH (08:11)
[2021-10-29] MEDS: Sildenafil Citrate 20 MG TAB PO SCH ×3 (08:12→21:17)
[2021-10-29] MEDS: Saccharomyces boulardii 250 MG CAP PO SCH (08:12)
[2021-10-29] MEDS: Apixaban 2.5 MG TAB PO SCH ×2 (08:12→21:18)
[2021-10-29] MEDS: Clopidogrel Bisulfate 75 MG TAB PO SCH (08:12)
[2021-10-29] MEDS: Empagliflozin 10 MG TAB PO SCH (08:12)
[2021-10-29] MEDS: Nystatin/Triamcinolone Cream 15 GM TUBE TOP SCH ×2 (08:19→21:19)
[2021-10-29] MEDS: Nystatin Powder 15 GM BOT TOP SCH ×3 (08:20→21:19)
[2021-10-29] MEDS: NPH, Human Insulin Isophane 300 UNIT/3 ML VIAL SC SCH (08:21)
[2021-10-29 16:08] LABS: Bilirubin Negative (Negative); Blood, Urine Trace (Negative); Clarity Clear (Clear); Glucose, Urine (Dipstick) >=1000 mg/dL (Negative); Ketone, Urine Negative (Negative); Leukocyte Negative (Negative); Nitrite Negative (Negative); Protein, Urine (Dipstick) Negative (Neg-Trace); Urobilinogen 0.2 mg/dL (Less than 2)
[2021-10-29 16:22] LABS: Bacteria/HPF Rare-Few HPF (None Seen); Squamous Epithelial 0-3 HPF (0-3); WBC/HPF None Seen HPF (0-3)
[2021-10-29] MEDS: Amiodarone 200 MG TAB PO SCH (17:13)
[2021-10-29] MEDS: Melatonin 3 MG TAB PO SCH (21:18)
[2021-10-29] MEDS: Tamsulosin HCl 0.4 MG CAP PO SCH (21:18)
[2021-10-29] MEDS: Atorvastatin Calcium 40 MG TAB PO SCH (21:18)
[2021-10-30] MEDS: Acetaminophen ER (8hr) 650 MG TAB PO SCH (05:26)
[2021-10-30] MEDS: Cholecalciferol 1,000 UNITS (25 MCG) TAB PO SCH (08:16)
[2021-10-30] MEDS: Sildenafil Citrate 20 MG TAB PO SCH (08:16)
[2021-10-30] MEDS: Saccharomyces boulardii 250 MG CAP PO SCH (08:17)
[2021-10-30] MEDS: Nystatin Powder 15 GM BOT TOP SCH (08:17)
[2021-10-30] MEDS: Empagliflozin 10 MG TAB PO SCH (08:17)
[2021-10-30] MEDS: Apixaban 2.5 MG TAB PO SCH (08:17)
[2021-10-30] MEDS: Multivit, Therapeutic 1 TAB PO SCH (08:17)
[2021-10-30] MEDS: Clopidogrel Bisulfate 75 MG TAB PO SCH (08:17)
[2021-10-30] MEDS: Nystatin/Triamcinolone Cream 15 GM TUBE TOP SCH (08:17)
[2021-10-30] MEDS: NPH, Human Insulin Isophane 300 UNIT/3 ML VIAL SC SCH (08:17)
[2021-10-30 09:00] VITALS: BP 116/68; TEMP 98.6
[2021-10-30] MEDS ORDERED: Furosemide 20 MG TAB PO SCH (09:45)
[2021-10-30] MEDS ORDERED: Ipratropium Bromide 0.06% Nasal Inhaler 15ml EA NARE ONE (10:44)
== END 2021-10-30 10:45 | DRG 637 ==
LOC: MADMS 12:30
PROVIDERS: ADMIT Family Medicine; ATTEND Family Medicine
DX: E11.69 Type 2 diabetes mellitus with other specified complication (principal); L89.153 Pressure ulcer of sacral region, stage 3; M86.171 Other acute osteomyelitis, right ankle and foot; Z20.822 Contact with and (suspected) exposure to COVID-19; D63.1 Anemia in chronic kidney disease; E11.51 Type 2 diabetes mellitus with diabetic peripheral angiopathy without gangrene; I12.9 Hypertensive chronic kidney disease with stage 1 through stage 4 chronic kidney disease, or unspecified chronic kidney disease; E11.22 Type 2 diabetes mellitus with diabetic chronic kidney disease; I25.10 Atherosclerotic heart disease of native coronary artery without angina pectoris; E11.42 Type 2 diabetes mellitus with diabetic polyneuropathy; Z66 Do not resuscitate; I48.0 Paroxysmal atrial fibrillation; N18.32 Chronic kidney disease, stage 3b; I95.9 Hypotension, unspecified; R09.02 Hypoxemia; L89.529 Pressure ulcer of left ankle, unspecified stage; L89.519 Pressure ulcer of right ankle, unspecified stage; N40.1 Benign prostatic hyperplasia with lower urinary tract symptoms; R33.8 Other retention of urine; R26.81 Unsteadiness on feet; L89.620 Pressure ulcer of left heel, unstageable; B37.2 Candidiasis of skin and nail; Z79.2 Long term (current) use of antibiotics; Z88.0 Allergy status to penicillin; Z79.899 Other long term (current) drug therapy; Z79.02 Long term (current) use of antithrombotics/antiplatelets; Z79.4 Long term (current) use of insulin; I69.398 Other sequelae of cerebral infarction; Z95.1 Presence of aortocoronary bypass graft; Z95.5 Presence of coronary angioplasty implant and graft; Z95.2 Presence of prosthetic heart valve; Z80.1 Family history of malignant neoplasm of trachea, bronchus and lung; Z99.3 Dependence on wheelchair
CPT/HCPCS: 36415; 36416; 71045; 80048; 80053; 81001; 82565; 85014; 85018; 85025; 85049; 97602; J0696; J1815; J3490; U0003; U0005

== ENCOUNTER 2021-11-17 10:00 | Emergency (ER) | payer OTHER ==
[2021-11-17 11:18] LABS: #Basophils 0.1 thou/uL (0.0-0.2); #Eosinphils 0.1 thou/uL (0.0-0.7); #Lymphocytes 0.8 thou/uL (1.20-3.40); #Monocytes 0.4 thou/uL (0.11-0.59); #Neutrophils 4.2 thou/uL (1.40-6.50); %Basophils 1.4 % (0.0-1.0); %Eosinophils 1.9 % (0.0-10.0); %Lymphocytes 13.6 % (21.0-51.0); %Monocytes 7.2 % (0.0-10.0); %Neutrophils 75.9 % (42.0-75.0); Hemoglobin 13.5 g/dL (14.0-18.0); Mean Corpuscular HGB CONC 29.3 g/dL (32.0-36.0); Mean Corpuscular Hemoglobin 26.3 pg (27.0-31.0); Mean Corpuscular Volume 89.6 fL (78.0-98.0); Mean Platelet Volume 8.6 fL (7.4-10.4); Platelet Count 144 thou/uL (130-400); RBC Distribution Width 15.3 % (11.5-14.5); Red Blood Cell (RBC) Count 5.15 mill/uL (4.70-6.10); White Blood Cell (WBC) Count 5.6 thou/uL (4.8-10.8)
[2021-11-17 11:35] LABS: ALT (SGPT) 26 U/L (8-55); AST (SGOT) 33 U/L (5-34); Albumin 2.7 g/dL (3.4-4.8); Alkaline Phosphatase 240 U/L (40-110); Anion Gap 12 mmol/L (10-20); BUN (Urea Nitrogen) 24 mg/dL (8.4-25.7); Bilirubin, Total 0.7 mg/dL (0.2-1.2); Calc. Creatinine Clearance 0 mL/min (70-130); Calcium 8.9 mg/dL (7.8-10.44); Carbon Dioxide 28 mmol/L (23-31); Chloride 93 mmol/L (98-107); Estimated GFR 85; Globulin 3.5 g/dL (2.4-3.5); Glucose 128 mg/dL (83-110); Protein, Total 6.2 g/dL (5.8-8.1); Sodium 127 mmol/L (136-145)
[2021-11-17] MEDS ORDERED: Albuterol Sulfate 2.5 mg/3 ml Neb ONE (12:35)
[2021-11-17] MEDS ORDERED: Furosemide 20 MG/2 ML VIAL ONE ×2 (12:35→21:20)
[2021-11-17] MEDS ORDERED: Dextrose 50% Abboject 50 ML SYRINGE ONE (12:35)
[2021-11-17] MEDS ORDERED: Insulin Regular 300 UNITS/3 ML VIAL ONE (12:35)
[2021-11-17 18:37] LABS: Anion Gap 13 mmol/L (10-20); BUN (Urea Nitrogen) 24 mg/dL (8.4-25.7); Calc. Creatinine Clearance 0 mL/min (70-130); Calcium 9.1 mg/dL (7.8-10.44); Carbon Dioxide 30 mmol/L (23-31); Chloride 92 mmol/L (98-107); Estimated GFR 84; Glucose 111 mg/dL (83-110); Potassium 5.4 mmol/L (3.5-5.1); Sodium 130 mmol/L (136-145)
== END 2021-11-17 21:34 | disposition short-term general hospital (02) ==
LOC: MADERS 10:00
DX: I13.0 Hypertensive heart and chronic kidney disease with heart failure and stage 1 through stage 4 chronic kidney disease, or unspecified chronic kidney disease (principal); E11.22 Type 2 diabetes mellitus with diabetic chronic kidney disease; N18.9 Chronic kidney disease, unspecified; E87.5 Hyperkalemia; I45.4 Nonspecific intraventricular block; E78.00 Pure hypercholesterolemia, unspecified; D64.9 Anemia, unspecified; I48.91 Unspecified atrial fibrillation; I73.9 Peripheral vascular disease, unspecified; I25.10 Atherosclerotic heart disease of native coronary artery without angina pectoris; Z86.73 Personal history of transient ischemic attack (TIA), and cerebral infarction without residual deficits; Z87.891 Personal history of nicotine dependence; Z79.01 Long term (current) use of anticoagulants; Z79.4 Long term (current) use of insulin; Z79.899 Other long term (current) drug therapy
CPT/HCPCS: 36415; 71045; 80053; 83880; 84484; 85025; 93005; 96374; 96375; 96376; J1815; J1940; J7611; J7999